=== PATIENT | female | born 1980 | race Two or more races ===

== ENCOUNTER 2019-12-11 11:21 | Emergency (ER) | payer MEDICAID, OTHER ==
[~2019-12-11] VITALS: Ht 160 cm; Wt 65.8 kg
[2019-12-11] MEDS ORDERED: cloNIDine HCL 0.1 MG TAB PO ONE ×2 (11:45)
[2019-12-11] MEDS ORDERED: ASPirin 81 mg TAB PO ONE (11:45)
[2019-12-11 11:53] LABS: Basophils # (auto) 0 10 ^3/uL (0-0.2); Basophils % (auto) 0.2 % (0.0-2.0); Eosinophils # (auto) 0.1 10 ^3/uL (0-0.8); Eosinophils % (auto) 1.6 % (0.0-7.0); Hemoglobin 12.7 g/dL (12.2-16.2); Lymphocytes # (auto) 2.4 10 ^3/uL (0.4-5.4); Lymphocytes % (auto) 28.9 % (10.0-50.0); Mean Corpuscular Hemoglobin 31.6 pg (28.0-32.0); Mean Corpuscular Hgb Conc. 34.4 g/dL (32.0-36.0); Mean Corpuscular Volume 91.8 fL (80.0-100.0); Monocytes # (auto) 0.3 10 ^3/uL (0-1.3); Monocytes % (auto) 3.8 % (0.0-12.0); Neutrophils # (auto) 5.5 10 ^3/uL (1.6-8.6); Neutrophils % (auto) 65.5 % (37.0-80.0); Platelet Count (auto) 270 10^3/uL (140-450); Red Blood Cells 4.03 10^6/uL (4.0-5.20); Red Cell Distribution Width 12.6 % (11.8-14.3); White Blood Cell 8.5 10^3/uL (4.4-10.8)
[2019-12-11 12:19] LABS: Albumin 4.2 g/dL (3.4-5.0); Anion Gap 9 (5-15); Blood Urea Nitrogen 10 mg/dL (7-18); Calcium 8.7 mg/dL (8.5-10.1); Carbon Dioxide 25 mmol/L (21-32); Chloride 100 mmol/L (98-107); Glucose 123 mg/dL (74-106); Potassium 3.3 mmol/L (3.5-5.1); Sodium 134 mmol/L (136-145)
[2019-12-11 12:25] LABS: Alanine Aminotransferase 42 U/L (13-56); Alkaline Phosphatase 37 U/L (45-117); Aspartate Aminotransferase 24 U/L (15-37); BUN/Creatinine Ratio 14.7; GFR African American 123 mL/min; GFR Non-African American 101 mL/min; Total Protein 7.7 g/dL (6.4-8.2)
[2019-12-11 15:16] VITALS: BP 153/99
== END 2019-12-11 15:19 | disposition home or self-care (01) ==
LOC: ER 11:21
DX: I16.0 Hypertensive urgency (principal)
CPT/HCPCS: 36415; 71046; 80053; 84484; 85025; 93005

== ENCOUNTER 2019-12-11 18:06 | Emergency (ER) | payer MEDICAID ==
[~2019-12-11] VITALS: Ht 160 cm; Wt 68.0 kg
[2019-12-11 19:32] LABS: Basophils # (auto) 0 10 ^3/uL (0-0.2); Basophils % (auto) 0.2 % (0.0-2.0); Eosinophils # (auto) 0.1 10 ^3/uL (0-0.8); Eosinophils % (auto) 1.4 % (0.0-7.0); Hematocrit 35.5 % (36.0-46.0); Hemoglobin 12.4 g/dL (12.2-16.2); Lymphocytes # (auto) 3.3 10 ^3/uL (0.4-5.4); Lymphocytes % (auto) 34.2 % (10.0-50.0); Mean Corpuscular Hemoglobin 31.9 pg (28.0-32.0); Mean Corpuscular Volume 91.2 fL (80.0-100.0); Monocytes # (auto) 0.4 10 ^3/uL (0-1.3); Monocytes % (auto) 4.5 % (0.0-12.0); Neutrophils # (auto) 5.7 10 ^3/uL (1.6-8.6); Neutrophils % (auto) 59.7 % (37.0-80.0); Nucleated Red Blood Cells % 0.1 %; Platelet Count (auto) 293 10^3/uL (140-450); Red Blood Cells 3.89 10^6/uL (4.0-5.20); Red Cell Distribution Width 12.7 % (11.8-14.3); White Blood Cell 9.5 10^3/uL (4.4-10.8)
[2019-12-11 19:54] LABS: Chloride 104 mmol/L (98-107); Potassium 3.2 mmol/L (3.5-5.1); Sodium 135 mmol/L (136-145)
[2019-12-11 19:59] LABS: Alanine Aminotransferase 35 U/L (13-56); BUN/Creatinine Ratio 12.1; Blood Urea Nitrogen 8 mg/dL (7-18); Calcium 8.1 mg/dL (8.5-10.1); Carbon Dioxide 13 mmol/L (21-32); GFR African American 127 mL/min; GFR Non-African American 105 mL/min
[2019-12-11 20:02] LABS: INR 0.98 (0.9-1.15); Partial Thromboplastin Time 25.4 sec (23.0-31.2)
[2019-12-11 20:04] LABS: Glucose 131 mg/dL (74-106)
[2019-12-11 20:05] LABS: Beta HCG, Quantitative < 1 mlU/mL (1-3)
[2019-12-11 20:08] LABS: Alkaline Phosphatase 36 U/L (45-117); Aspartate Aminotransferase 18 U/L (15-37); Bilirubin, Total 1.1 mg/dL (0.2-1.0); Total Protein 7.4 g/dL (6.4-8.2)
[2019-12-11 20:37] LABS: Anion Gap 18 (5-15)
[2019-12-11 20:45] LABS: Magnesium 2.3 mg/dL (1.6-2.6)
[2019-12-11 23:24] VITALS: BP 142/87
[2019-12-12 00:08] LABS: BUN/Creatinine Ratio 8.7; Calcium 9.3 mg/dL (8.5-10.1); Potassium 3.4 mmol/L (3.5-5.1)
[2019-12-12 00:11] LABS: Bilirubin, Total 1.1 mg/dL (0.2-1.0); Total Protein 7.9 g/dL (6.4-8.2)
[2019-12-12] MEDS ORDERED: POTASSIUM CHL 20 Meq TABLET PO ONE (01:00)
== END 2019-12-12 01:25 | disposition home or self-care (01) ==
LOC: ER 18:06
DX: E86.0 Dehydration (principal); I10 Essential (primary) hypertension; R51 Headache
CPT/HCPCS: 36415; 70450; 80053; 83735; 83880; 84443; 84484; 84702; 85025; 85379; 85610; 85730